=== PATIENT | female | born 2000 | race Caucasian/White ===

== ENCOUNTER 2024-05-05 18:37 | Emergency (ER) | payer MEDICAID, SELFPAY ==
[2024-05-05 19:11] VITALS: BP 115/70; PULSE 82; RESP 18; TEMP 37.1; O2SAT 99; BMI 23.5
[2024-05-05 22:56] LABS: Basophils Absolute Auto 0.05 K/uL (0.00-0.30); Basophils Percent Auto 0.7 % (0.0-3.0); Eosinophils Absolute Auto 0.33 K/uL (0.00-0.50); Eosinophils Percent Auto 4.4 % (0.0-7.0); Hematocrit 38.8 % (33.0-51.0); Hemoglobin* 12.9 gm/dL (12.0-16.0); Immature Granulocytes Abs Auto 0.07 K/uL (0.00-0.30); Immature Granulocytes Pct Auto 0.9 %; Lymphocytes Absolute Auto 2.15 K/uL (0.90-2.90); Lymphocytes Percent Auto 28.7 % (20-44); Mean Corpuscular HGB Conc 33 gm/dL (32-36); Mean Corpuscular Hemoglobin 28 pg (26-34); Mean Corpuscular Volume 84 fL (80-100); Monocytes Percent Auto 8.4 % (0.0-11.0); Neutrophils Absolute Auto 4.25 K/uL (1.7-7.0); Neutrophils Percent Auto 56.9 % (42.0-72.0); Platelet Count* 279 K/uL (140-440); RDW Coefficient of Variation % 12.4 % (11.5-15.5); White Blood Count* 7.48 K/uL (4.50-11.00)
[2024-05-05 22:57] LABS: Slide Review Reflex No
--- NOTE | 2024-05-05 23:44 | ED_ITS ---
HPI - General Adult General Date Seen: 05/05/24 Chief complaint: Skin/Abscess/Foreign Body Stated complaint: L leg pain--bug bite Time Seen by Provider: 05/05/24 22:21 Source: patient Mode of arrival: ambulatory Limitations: no limitations History of Present Illness HPI narrative: Patient is a 23-year-old here with family member who is helping to interpret, they declined stringed instrument assembler services. She is mainly [place] speaking. A few days ago she noted a cluster of multiple bites on her left ankle. These had been itchy, and today she has felt like she had pain ascending up the leg. She has not had fevers or systemic complaints otherwise. She has been out in the [place] and [employer] Related Data Previous Rx's ?Medication ?Instructions ?Recorded hydrocortisone 2.5 % topical 1 applic topical BID #20 grams 05/05/24 ointment Allergies Allergy/AdvReac Type Severity Reaction Status Date / Time No Known Drug Allergies Allergy Verified 05/05/24 19:08 Review of Systems Status of ROS: Reports: 6 or more systems reviewed and unremarkable except as noted in History and below Exam Narrative: Exam Narrative: Vital signs reviewed In general, alert, well-appearing young woman. Extremities: She has a cluster of about 6 or 7 lesions on her left ankle which look consistent with insect bites with some surrounding inflammation and little bit of bruising. No significant surrounding erythema, no lymphangitic streaking, no edema, no purulence. Skin: Warm dry well perfused, no other rash or lesion aside from a scattering of a few other bug bites on her chest. Const: Vital Signs, click to edit/add: Vital Signs - 24 hr 05/05/24 19:11 Temperature 98.8 F Pulse Rate [Pulse Oximeter] 82 Respiratory Rate 18 Blood Pressure [Ri ght Upper Arm] 115/70 Pulse Oximetry 99 Oxygen Delivery Me thod Room Air Course Course ED Course: CBC is normal, white blood cell count is 7.5, normal platelets. She does have some surrounding inflammation but these look like insect bites. Recommended supportive care with an antihistamine, I gave her some hydrocortisone ointment as well. Anticipate gradual improvement over the next few days, for worsening or new symptoms return any time or see primary care. Vital Signs Vital signs: Initial Vital Signs Temperature 98.8 F 05/05/24 19:11 Temperature Source Temporal Artery Scan 05/05/24 19:11 Pulse Rate 82 06/04/24 19:11 Respiratory Rate 18 05/05/24 19:11 Blood Pressure 115/70 05/05/24 19:11 Blood Pressure Mean 85 05/05/24 19:11 Pulse Oximetry 99 05/05/24 19:11 Oxygen Delivery Method Room Air 05/05/24 19:11 Vital Signs Temperature 98.8 F 05/05/24 19:11 Pulse Rate 82 05/05/24 19:11 Respiratory Rate 18 05/05/24 19:11 Blood Pressure 115/70 05/05/24 19:11 Pulse Oximetry 99 05/05/24 19:11 Oxygen Delivery Method Room Air 05/05/24 19:11 Temperature 98.8 F 05/05/24 19:11 Pulse Rate 82 05/05/24 19:11 Respiratory Rate 18 05/05/24 19:11 Blood Pressure 115/70 05/05/24 19:11 Pulse Oximetry 99 05/05/24 19:11 Oxygen Delivery Method Room Air 05/05/24 19:11 Medical Decision Making Lab Data Labs: Lab Results 05/05/24 Range/Units 22:31 WBC 7.48 (4.50-11.00) K/uL RBC 4.60 (4.00-5.20) m/uL Hgb 12.9 (12.0-16.0) gm/dL Hct 38.8 (33.0-51.0) % MCV 84 (80-100) fL MCH 28 (26-34) pg MCHC 33 (32-36) gm/dL RDW Coeff of Kay 12.4 (11.5-15.5) % Plt Count 279 (140-440) K/uL Neut % (Auto) 56.9 (42.0-72.0) % Lymph % (Auto) 28.7 (20-44) % Nicholas % (Auto) 8.4 (0.0-11.0) % Eos % (Auto) 4.4 (0.0-7.0) % Baso % (Auto) 0.7 (0.0-3.0) % Neut # (Auto) 4.25 (1.7-7.0) K/uL Lymph # (Auto) 2.15 (0.90-2.90) K/uL Nicholas # (Auto) 0.60 (0.00-0.90) K/UL Eos # (Auto) 0.33 (0.00-0.50) K/uL Baso # (Auto) 0.05 (0.00-0.30) K/uL Abs Immat Gran (auto) 0.07 (0.00-0.30) K/uL Imm/Tot Granulo (auto) 0.9 % Discharge Plan Discharge Clinical Impression: Insect bite Patient Disposition: Home, Self-Care Condition: Stable Instructions: Chigger Bite (ED) Additional Instructions: I think your symptoms are related to insect bites, and I suspect chiggers given the cluster of multiple bites on your ankle. I would recommend that you use a medicine like Claritin or Zyrtec once or twice daily for itching. I am prescri rayna a topical ointment for you to use as well. I do not see anything to suggest infection and your blood work was normal. If you are feeling worse, have new symptoms such as fever, different rash, or other concerns, see her primary doctor or return. Creo que kyle s?ntomas est?n relacionados con picaduras de insectos y sospecho que son niguas debido al rob de m?ltiples picaduras en lopez tobillo. Le recomendar?a que use un medicamento neo Claritin o Zyrtec dwayne o dos veces al d?a para la picaz?n. Tambi?n te estoy recetando un gabriel?ento t?dede para que lo uses. No veo nada que sugiera infecci?n y lopez an?lisis de lindy fue normal. Si se siente peor, tiene s?ntomas nuevos neo fiebre, sarpullido diferente u otras preocupaciones, consulte a lopez m?dico de cabecera o regrese. Prescriptions: New hydrocortisone 2.5 % ointment 1 applic topical BID Qty: 20 0RF Follow Up/Referrals: Provider,Not a Local [Primary Care Provider] - Stand Alone [facility] Info Inst[facility]
== END 2024-05-05 23:15 | disposition home or self-care (01) ==
PROVIDERS: Emergency Provider Emergency Medicine
DX: S90.562A Insect bite (nonvenomous), left ankle, initial encounter (principal)
CPT/HCPCS: 36415; 85025; 99283

== ENCOUNTER 2025-03-27 14:14 | Emergency (ER) | payer OTHER, SELFPAY ==
[2025-03-27 14:26] VITALS: BP 112/69; PULSE 69; RESP 16; TEMP 36.6; O2SAT 100; BMI 21.6
[2025-03-27 15:09] LABS: Basophils Absolute Auto 0.03 K/uL (0.00-0.30); Basophils Percent Auto 0.4 % (0.0-3.0); Eosinophils Absolute Auto 0.13 K/uL (0.00-0.50); Eosinophils Percent Auto 1.8 % (0.0-7.0); Hematocrit 40.4 % (33.0-51.0); Hemoglobin* 13.3 gm/dL (12.0-16.0); Immature Granulocytes Abs Auto 0.02 K/uL (0.00-0.30); Immature Granulocytes Pct Auto 0.3 %; Lymphocytes Absolute Auto 1.64 K/uL (0.90-2.90); Lymphocytes Percent Auto 23.2 % (20-44); Mean Corpuscular HGB Conc 33 gm/dL (32-36); Mean Corpuscular Hemoglobin 28 pg (26-34); Mean Corpuscular Volume 85 fL (80-100); Monocytes Percent Auto 5.8 % (0.0-11.0); Neutrophils Absolute Auto 4.83 K/uL (1.7-7.0); Neutrophils Percent Auto 68.5 % (42.0-72.0); Platelet Count* 270 K/uL (140-440); RDW Coefficient of Variation % 12.8 % (11.5-15.5); Red Blood Count 4.75 m/uL (4.00-5.20); White Blood Count* 7.06 K/uL (4.50-11.00)
[2025-03-27 15:14] LABS: Slide Review Reflex No
[2025-03-27 15:21] LABS: Albumin* 4.7 g/dL (3.3-5.0); Chloride* 105 mmol/L (96-114); Sodium* 141 mmol/L (135-149)
[2025-03-27 15:22] LABS: Potassium* 3.9 mmol/L (3.6-5.1)
[2025-03-27 15:24] LABS: Alanine Aminotransferase* 12 U/L (4-35); Alkaline Phosphatase* 61 U/L (40-150); Anion Gap 11 mEq/L (7-15); Aspartate Amino Transferase* 25 U/L (12-35); Bilirubin Direct* 0.2 mg/dL (0.0-0.5); Bilirubin Total* 0.6 mg/dL (0.1-1.5); Blood Urea Nitrogen* 11 mg/dL (5-24); Calcium* 9.3 mg/dL (8.4-10.6); Carbon Dioxide* 25 mmol/L (20-32); Creatinine* 0.6 mg/dL (0.5-1.5); Est. Creatinine Clearance* 148.36; Estimated Glomerular Filt Rate 130 ml/min; Glucose* 90 mg/dL (60-115); Lipase* 79 U/L (23-300); Total Protein* 7.5 g/dL (6.0-8.3)
--- NOTE | 2025-03-27 15:42 | ED.ABDPAIN ---
HPI - Abdominal Pain General Chief Complaint: Abdominal Pain Stated Complaint: stomach pain Time Seen by Provider: 03/27/25 14:15 History of Present Illness HPI narrative: This 24-year-old female comes in reporting upper epigastric pain over the past couple weeks and worsening over the past couple days. She states that this pain comes and goes related to taking food. She has had symptoms like this in the past and did take a medicine from a provider she saw a when she was in [place]. She is no longer taking any medication. She has had some nausea and does report a couple episodes of diarrhea. She has not had any fevers. Her pain is located in the upper epigastric region. Related Data Previous Rx's ?Medication ?Instructions ?Recorded pantoprazole 20 mg tablet,delayed 20 mg PO DAILY #20 tabs 03/27/25 release (Protonix) Allergies Allergy/AdvReac Type Severity Reaction Status Date / Time No Known Drug Allergies Allergy Verified 05/05/24 19:08 Review of Systems Status of ROS Reports: 10 or more systems reviewed and unremarkable except as noted in History and below Narrative Constitutional: No fevers, no weight gain or loss. Eyes: No discharge. No vision changes. HENT: No congestion, no sore throat, no ear pain. Cardiovascular: No chest pain, no palpitations. Respiratory: No shortness of breath, no wheezes, no cough. Gastrointestinal: Upper epigastric abdominal pain as described above. Genitourinary: No dysuria, no hematuria. Musculoskeletal: Normal range of motion. Skin: No rashes, no pruritis. Neurological: No dizziness, weakness, sensory change, speech change. Endo/Heme/Allergies: No bruising or bleeding. No polydipsia. Pysch: no suicidality, no anxiety, no insomnia. All other systems reviewed and are negative. [facility] Social History Smoking Status: Never smoker Do you use any of these nicotine containing products: None Second hand tobacco smoke exposure: No How often do you have a drink containing alcohol: never AUDIT-C Alcohol total score: 0 Non-prescribed substance use: denies use service: No Exam Narrative: Exam Narrative: Constitutional: Well-developed, well-nourished, no acute distress. HEENT: Normocephalic, atraumatic. Neck: Normal range of motion. Nontender. Supple. Heart: Regular. No murmurs. Normal rate. Intact distal pulses. Lungs: Clear to auscultation. No chest discomfort. No wheezes, rhonchi, or rales. Abdomen: Normal bowel sounds. Diffuse upper epigastric abdominal pain. No rebound tenderness. Genitalia: Deferred. Back: No midline tenderness. Normal range of motion. Extremities: Normal range of motion. No injury. Skin: Intact. No rash. Warm. No erythema or pallor. Neurologic: No altered sensation. No weakness. Alert and oriented. Psychiatric: No suicidality. No anxiety or depression. No insomnia. Nursing notes and vitals signs are reviewed. Const: Vital Signs, click to edit/add: Vital Signs - 24 hr 03/27/25 14:26 Temperature 97.8 F Pulse Rate [Pulse Oximeter] 69 Respiratory Rate 16 Blood Pressure [Ri ght Upper Arm] 112/69 Pulse Oximetry 100 Oxygen Delivery Me thod Room Air Course Vital Signs Vital signs: Initial Vital Signs Temperature 97.8 F 03/27/25 14:26 Temperature Source Temporal Artery Scan 03/27/25 14:26 Pulse Rate 69 03/27/25 14:26 Pulse Rhythm Regular 03/27/25 14:26 Respiratory Rate 16 03/27/25 14:26 Blood Pressure 112/69 03/27/25 14:26 Blood Pressure Mean 83 03/27/25 14:26 Blood Pressure Position Sitting 03/27/25 14:26 Pulse Oximetry 100 03/27/25 14:26 Oxygen Delivery Method Room Air 03/27/25 14:26 Vital Signs Temperature 97.8 F 03/27/25 14:26 Pulse Rate 69 03/27/25 14:26 Respiratory Rate 16 03/27/25 14:26 Blood Pressure 112/69 03/27/25 14:26 Pulse Oximetry 100 03/27/25 14:26 Oxygen Delivery Method Room Air 03/27/25 14:26 Temperature 97.8 F 03/27/25 14:26 Pulse Rate 69 03/27/25 14:26 Respiratory Rate 16 03/27/25 14:26 Blood Pressure 112/69 03/27/25 14:26 Pulse Oximetry 100 03/27/25 14:26 Oxygen Delivery Method Room Air 03/27/25 14:26 MDM - Abdominal Pain MDM Narrative Medical decision making narrative: This patient comes in with upper epigastric pain that seems to be worsened when taking food. She states that she had a previous diagnosis some years ago of a gastritis. She states that this symptoms seem similar. Bedside ultrasound performed by me shows normal anatomy in the right upper quadrant. Labs are acquired also and these returned with normal findings. I did provide a prescription for Protonix. Lab Data Labs: Lab Results 03/27/25 Range/Units 15:02 WBC 7.06 (4.50-11.00) K/uL RBC 4.75 (4.00-5.20) m/uL Hgb 13.3 (12.0-16.0) gm/dL Hct 40.4 (33.0-51.0) % MCV 85 (80-100) fL MCH 28 (26-34) pg MCHC 33 (32-36) gm/dL RDW Coeff of Kay 12.8 (11.5-15.5) % Plt Count 270 (140-440) K/uL Neut % (Auto) 68.5 (42.0-72.0) % Lymph % (Auto) 23.2 (20-44) % [place] % (Auto) 5.8 (0.0-11.0) % Eos % (Auto) 1.8 (0.0-7.0) % Baso % (Auto) 0.4 (0.0-3.0) % Neut # (Auto) 4.83 (1.7-7.0) K/uL Lymph # (Auto) 1.64 (0.90-2.90) K/uL [place] # (Auto) 0.40 (0.00-0.90) K/UL Eos # (Auto) 0.13 (0.00-0.50) K/uL Baso # (Auto) 0.03 (0.00-0.30) K/uL Abs Immat Gran (auto) 0.02 (0.00-0.30) K/uL Imm/Tot Granulo (auto) 0.3 % Sodium 141 (135-149) mmol/L Potassium 3.9 (3.6-5.1) mmol/L Chloride 105 (96-114) mmol/L Carbon Dioxide 25 (20-32) mmol/L Anion Gap 11 (7-15) mEq/L BUN 11 (5-24) mg/dL Creatinine 0.6 (0.5-1.5) mg/dL Estimated Creat Clear 148.36 Estimated GFR 130 ml/min Glucose 90 (60-115) mg/dL Calcium 9.3 (8.4-10.6) mg/dL Total Bilirubin 0.6 (0.1-1.5) mg/dL Direct Bilirubin 0.2 (0.0-0.5) mg/dL AST 25 (12-35) U/L ALT 12 (4-35) U/L Alkaline Phosphatase 61 (40-150) U/L Total Protein 7.5 (6.0-8.3) g/dL Albumin 4.7 (3.3-5.0) g/dL Lipase 79 (23-300) U/L Discharge Plan Discharge Clinical Impression: Gastritis Patient Disposition: Home, Self-Care Condition: Stable Additional Instructions: Take medication as prescribed. Follow-up with MD for ongoing management. Return if worsening. Prescriptions: New pantoprazole [Protonix] 20 mg tablet,delayed release (DR/EC) 20 mg PO DAILY Qty: 20 2RF Follow Up/Referrals: Provider,Not a Local [Primary Care Provider] - Stand Alone Forms: My[facility] Info Instructions Procedures Ultrasound Biliary exam #1: Anatomical areas examined: gallbladder, long and short axis Indications: RUQ/epigastric pain Exam type: limited abdominal ultrasound; RUQ Impression: normal exam
== END 2025-03-27 15:58 | disposition home or self-care (01) ==
PROVIDERS: Emergency Provider Emergency Medicine Emergency Medical Services
DX: K29.70 Gastritis, unspecified, without bleeding (principal)
CPT/HCPCS: 36415; 76705; 80048; 80076; 83690; 85025; 99283; 99284